=== PATIENT | male | born 1975 | race African-American/Black ===

== ENCOUNTER 2021-10-23 06:55 | Day surgery (SDC) | payer OTHER ==
[~2021-10-23] VITALS: Ht 177.8 cm; Wt 158.8 kg
[~2021-10-23 06:55] MED LIST: LISINOPRIL10 MG PO; NASONEX50 MCG/AC NAB; XANAX1 MG PO
[2021-10-23 12:42] VITALS: BP 117/71
== END 2021-10-23 10:04 | disposition home or self-care (01) | DRG 395 ==
LOC: ORM 06:55
PROVIDERS: ATTEND Surgery
PROC: 0DBM8ZX Excision of Descending Colon, Via Natural or Artificial Opening Endoscopic, Diagnostic (ICD-10-PCS; principal; 2021-10-23)
PROC: 0DBL8ZX Excision of Transverse Colon, Via Natural or Artificial Opening Endoscopic, Diagnostic (ICD-10-PCS; 2021-10-23)
DX: D12.4 Benign neoplasm of descending colon (principal); D12.3 Benign neoplasm of transverse colon; K64.8 Other hemorrhoids; Z86.010 Personal history of colon polyps